=== PATIENT | male | born 1975 | race Hispanic/Latino ===

== ENCOUNTER 2017-09-09 13:40 | Emergency (ER) | payer OTHER ==
[2017-09-09] MEDS ORDERED: diphenhydrAMINE 25 MG CAP ONE (14:07)
[2017-09-09] MEDS ORDERED: Famotidine 20 MG TAB ONE (14:07)
[2017-09-09] MEDS ORDERED: Cephalexin 250 MG CAP ONE (14:07)
[2017-09-09] MEDS ORDERED: Cephalexin 500 MG CAP ONE (14:07)
[2017-09-09] MEDS ORDERED: Dexamethasone 4 MG TAB ONE (14:07)
== END 2017-09-09 14:15 | disposition home or self-care (01) ==
LOC: MADERS 13:40
DX: L23.7 Allergic contact dermatitis due to plants, except food (principal); L03.115 Cellulitis of right lower limb; L03.116 Cellulitis of left lower limb
CPT/HCPCS: 99282; J8540